=== PATIENT | female | born 1975 ===

== ENCOUNTER 2017-02-09 15:28 | Emergency (ER) | payer MEDICAID ==
[2017-02-09 15:28] VITALS: BMI 29.2
[2017-02-09 15:37] VITALS: TEMP 98.4
--- NOTE | 2017-02-09 16:09 | ED PDOC ---
HPI: Female Pain Time Seen by Provider: 02/09/17 15:46 Chief Complaint (Nursing): Female Genitourinary Chief Complaint (Provider): Vaginal Bleeding History Per: Patient History/Exam Limitations: no limitations Onset/Duration Of Symptoms: Days (x1 day ago), Intermittent Episodes Current Symptoms Are (Timing): Still Present Severity: Moderate Quality Of Discomfort: Cramping Associated Symptoms: Nausea. denies: Vomiting, Urinary Symptoms (dysuria) Additional Complaint(s): Jayna Encinas is a 41 year old female, with a past medical history of HTN, who presents to the emergency department with complaints of vaginal bleeding containing clots, that the patient has been experiencing since yesterday. Patient reports intermittent suprapubic, cramping abdominal pain. Patient reports that she is 3 to 4 weeks and having had her last menstrual period on 01/08/17. She stated being nauseated, but denies vomiting and dysuria. Of note, the patient has been 7 times in the past, had 5 viable births , and miscarried once in which she had a dilation and curettage procedure done. PMD: Eric Cardozo Abnormal Vaginal Bleeding: Yes : 7 Para: 5 Miscarriage: 1 Past Medical History Reviewed: Historical Data, Nursing Documentation, Vital Signs Vital Signs: Last Vital Signs Temp 98.4 F 02/09/17 15:33 Pulse 97 H 02/09/17 15:33 Resp 20 02/09/17 15:33 BP 152/104 H 02/09/17 15:33 Pulse Ox 96 02/09/17 15:33 - Medical History PMH: Asthma, Depression, HTN Denies: Diabetes, Hepatitis, HIV, Chronic Kidney Disease, Seizures, Sexually Transmitted Disease - Surgical History Surgical History: Cholecystectomy Other surgeries: dilation and curettage procedure for miscarriage - Family History Family History: States: CAD (father: CABG), Hypertension (father) - Immunization History Hx Tetanus Toxoid Vaccination: No Hx Influenza Vaccination: Yes Hx Pneumococcal Vaccination: No - Home Medications Home Medications: Ambulatory Orders Medication Instructions Recorded Albuterol HFA [Ventolin HFA 90 2 puff IH [id number] 01/04/16 mcg/actuation (8 g)] Mirtazapine [Remeron] 15 mg PO HS PRN #30 tab 01/06/16 Sertraline [Zoloft] 12.5 mg PO DAILY #15 tab 01/06/16 Albuterol HFA [Ventolin HFA 90 2 puff IH [id number] PRN #1 bottle 01/12/17 mcg/actuation (8 g)] amLODIPine [Norvasc] 5 mg PO DAILY #10 tab 01/12/17 - Allergies Allergies/Adverse Reactions: Allergies Allergy/AdvReac Type Severity Reaction Status Date / Time morphine Allergy RASH Verified 02/09/17 15:33 Penicillins Allergy RASH Verified 02/09/17 15:33 Review of Systems ROS Statement: Except As Marked, All Systems Reviewed And Found Negative Gastrointestinal: Positive for: Nausea, Abdominal Pain (suprapubic). Negative for: Vomiting Genitourinary Female: Positive for: Vaginal Bleeding. Negative for: Dysuria Physical Exam - Reviewed Nursing Documentation Reviewed: Yes Vital Signs Reviewed: Yes - Physical Exam Appears: Positive for: Well, No Acute Distress Head Exam: Positive for: ATRAUMATIC, NORMAL INSPECTION, NORMOCEPHALIC Skin: Positive for: Warm, Dry Eye Exam: Positive for: EOMI, PERRL ENT: Negative for: Pharyngeal Erythema, Tonsillar Exudate Neck: Positive for: Painless ROM, Supple Cardiovascular/Chest: Positive for: Regular Rate, Rhythm. Negative for: Murmur Respiratory: Positive for: Normal Breath Sounds. Negative for: Wheezing Gastrointestinal/Abdominal: Positive for: Normal Exam, Soft, Tenderness ((+) suprapubic). Negative for: Mass, Distended, Guarding, Rebound Back: Positive for: Normal Inspection. Negative for: Decreased ROM Extremity: Positive for: Normal ROM. Negative for: Pedal Edema, Deformity Lymphatic: Negative for: Adenopathy Neurologic/Psych: Positive for: Alert. Negative for: Motor/Sensory Deficits - Laboratory Results Result Diagrams: 02/09/17 15:52 02/09/17 16:14 - ECG O2 Sat by Pulse Oximetry: 96 Pulse Ox Interpretation: Normal - CT Scan/US Transvaginal US Other Rad Studies (CT/US): Read By Radiologist, Radiology Report Reviewed Other Rad Interpretation: See MDM Medical Decision Making Medical Decision Makin:46 Initial Impression: vaginal bleeding Differential Diagnoses includes, but is not limited to complete miscarriage, ectopic , UTI. Initial Plan: * Transvaginal US * CBC * CMP * PT/PTT * Blood Type and Screen * Beta-HCG Quantitative * Urine * Urine Dip * IV Insertion ([facility]) * Reevaluation 18:48 - Transvaginal US Results FINDINGS: Uterus/cervix: Endometrial stripe thickness is 12 mm. No visible intrauterine and no obvious fluid collection or mass in the endometrium but the images do not show Doppler evaluation of the uterus and therefore limited evaluation for retained products of conception. Cervical length is 3.3 cm. The uterus is anteverted and measures 9.9 x 5.3 x 5.4 cm. Right ovary: The right ovary measures 2.1 x 2.8 x 1.9 cm with normal Doppler flow. Normal blood flow. Left ovary: The left ovary measures 1.9 x 1.6 x 1.5 cm with normal Doppler flow. Normal blood flow. Free fluid: No free fluid. Bladder: Empty bladder which cannot be evaluated with this probe. IMPRESSION: Endometrial stripe thickness is 12 mm. No visible intrauterine and no obvious fluid collection or mass in the endometrium but the images do not show Doppler evaluation of the uterus and therefore limited evaluation for retained products of conception. 7p betahcg <2.65. Rh +. JARETT Garcia findings and he will follow up with her next week. Bleeding instructions given. JARETT pt findings and plan of care. Possibility of regular menstrual period vs spontaneous miscarriage discussed. Treatment plan similar. Rest, fluids, NSAIDs , CASE [facility]OCATE follow up. Scribe Attestation: Documented by Juan Mcallister, training under Rola Montes, acting as a scribe for Angella Gaviria MD. Provider Scribe Attestation: All medical record entries made by the Scribe were at my direction and personally dictated by me. I have reviewed the chart and agree that the record accurately reflects my personal performance of the history, physical exam, medical decision making, and the department course for this patient. I have also personally directed, reviewed, and agree with the discharge instructions and disposition. Disposition - Clinical Impression Clinical Impression: Vaginal bleeding Counseled Patient/Family Regarding: Studies Performed, Diagnosis, Need For Followup - Disposition Referrals: Eric Cardozo, MATILDE, BARREL RIFLER BUTTON [Family Provider] - Clinton Garcia MD [Staff Provider] - 02/11/17 Disposition: Routine/Home Disposition Time: 19:00 Condition: GOOD Additional Instructions: PLEASE FIND OUT FROM YOUR DOCTOR YOUR LAB RESULT AND LET DR GARCIA KNOW TO DETERMINE IF YOU WERE TAKE ADVIL OR MOTRIN FOR PAIN AND DRINK PLENTY OF HYDRATING FLUIDS TAKE YOUR HYPERTENSION MEDICATION PRESCRIBED. Instructions: Spontaneous Miscarriage (ED), Menstruation (ED)
[2017-02-09 16:28] LABS: BASO % 0.4 % (0.0-2.0); EOS # 0.1 K/uL (0.0-0.7); EOS % 0.6 % (0.0-4.0); HEMATOCRIT 41.8 % (34.0-47.0); LYMPH # 1.6 K/uL (1.0-4.3); LYMPH % 14.6 % (20.0-40.0); MEAN CELL VOLUME 82.4 fl (81.0-99.0); MEAN CORPUSCULAR HEMOGLOBIN 27.2 pg (27.0-31.0); MEAN PLATELET VOLUME 10.4 fl (7.2-11.7); MONO # 0.6 K/uL (0.0-0.8); MONO % 5.8 % (0.0-10.0); NEUT # 8.4 K/uL (1.8-7.0); NEUT % 78.6 % (50.0-75.0); RED CELL DISTRIBUTION WIDTH 14.4 % (11.5-14.5); WHITE BLOOD COUNT 10.7 K/uL (4.8-10.8)
[2017-02-09 16:30] LABS: ALB/GLOB RATIO 1.1 (1.0-2.1); ALKALINE PHOSPHATASE 98 U/L (38-126); ALT/SGPT 25 U/L (9-52); AST/SGOT 21 U/L (14-36); BILIRUBIN,TOTAL 0.6 mg/dl (0.2-1.3); BLOOD UREA NITROGEN 13 mg/dl (7-17); CALCIUM 9.7 mg/dL (8.4-10.2); CARBON DIOXIDE 25 mmol/L (22-30); CHLORIDE 105 mmol/L (98-107); GFR AFRICAN-AMERICAN > 60; GLUCOSE,RANDOM 89 mg/dL (65-105); POTASSIUM 3.8 MMOL/L (3.6-5.0); SODIUM 145 mmol/l (132-148); TOTAL PROTEIN 8.5 G/DL (6.3-8.2)
[2017-02-09 16:47] LABS: PARTIAL THROMBOPLASTIN TIME 28.7 SECONDS (23.3-32.5)
[2017-02-09 19:38] VITALS: BP 132/94; PULSE 82; RESP 22; O2SAT 100
--- NOTE | 2017-02-10 08:28 | US ---
Pelvic ultrasound History: Evaluate for retained products of conception. Comparison: None. Technique: Trans abdominal and transvaginal ultrasonography evaluation. Findings: The uterus appears anteverted and measures 9.9 x 5.3 x 5.4 centimeters. No intrauterine gestational sac identified. The endometrium appears mildly heterogeneous and echogenic and measures 1.2 centimeters. Submitted images do not demonstrate Doppler evaluation of the endometrial stripe and therefore this is a limited evaluation for retained products conception. Endometrium otherwise measures 1.2 centimeters. The cervix appears closed and without gross abnormality. The cervical length is approximately 3.3 centimeters. The right ovary measures 2.1 x 2.8 x 1.9 centimeters. The left ovary measures 1.9 x 1.6 x 1.5 centimeters. Doppler flow seen within both ovaries. No significant free fluid in the cul-de-sac. Impression: Mildly prominent and heterogeneous endometrium, measuring approximately 1.2 centimeter. No Doppler evaluation was performed for the endometrial stripe thereby limiting evaluation for retained products of conception. Repeat evaluation with Doppler images recommended. No ovarian torsion at the time evaluation. Please note that this report is in general agreement with the preliminary report provided by [facility].
== END 2017-02-09 19:40 | disposition home or self-care (01) ==
LOC: H.ER 15:28
DX: N93.9 Abnormal uterine and vaginal bleeding, unspecified (principal); R10.2 Pelvic and perineal pain; I10 Essential (primary) hypertension

== ENCOUNTER 2017-06-21 13:41 | Observation (INO) | payer MEDICAID ==
[2017-06-21 13:41] VITALS: BMI 29.2
[2017-06-21 13:49] VITALS: BP 146/88; PULSE 88; RESP 18; TEMP 98.8; O2SAT 99
[2017-06-21 14:50] LABS: BASO % 0.3 % (0.0-2.0); EOS % 0.5 % (0.0-4.0); HEMOGLOBIN 13.1 g/dL (12.0-16.0); LYMPH # 1.1 K/uL (1.0-4.3); LYMPH % 14.8 % (20.0-40.0); MEAN CORPUSCULAR HEMOGLOBIN 28.9 pg (27.0-31.0); MEAN CORPUSCULAR HGB CONC 33.6 g/dL (33.0-37.0); MEAN PLATELET VOLUME 10.8 fl (7.2-11.7); MONO # 0.4 K/uL (0.0-0.8); MONO % 5.2 % (0.0-10.0); NEUT # 6.1 K/uL (1.8-7.0); NEUT % 79.2 % (50.0-75.0); RBC 4.52 Mil/uL (3.80-5.20); RED CELL DISTRIBUTION WIDTH 14.9 % (11.5-14.5); WHITE BLOOD COUNT 7.7 K/uL (4.8-10.8)
[2017-06-21 15:08] LABS: ALB/GLOB RATIO 1.2 (1.0-2.1); ALBUMIN 3.8 g/dL (3.5-5.0); ALT/SGPT 27 U/L (9-52); AST/SGOT 16 U/L (14-36); BLOOD UREA NITROGEN 8 mg/dl (7-17); CALCIUM 9.3 mg/dL (8.4-10.2); GFR AFRICAN-AMERICAN > 60; GFR NON-AFRICAN AMERICAN > 60
--- NOTE | 2017-06-21 15:09 | ED PDOC ---
HPI: General Adult Time Seen by Provider: 06/21/17 14:08 Chief Complaint (Nursing): Female Genitourinary History Per: Patient Additional Complaint(s): Pt. states this morning she was urinating and after she wiped she noticed some blood on the tissue. She contacted Dr. Garcia who instructed her to come to ED. Of note, pt is currently 15 weeks . Denies dysuria, abdominal pain, pelvic pain, fever, N/V/D. Past Medical History Reviewed: Historical Data, Nursing Documentation, Vital Signs Vital Signs: Last Vital Signs Temp 98.8 F 06/21/17 13:47 Pulse 88 06/21/17 13:47 Resp 18 06/21/17 13:47 BP 146/88 06/21/17 13:47 Pulse Ox 99 06/21/17 15:10 - Medical History PMH: Asthma, Depression, HTN Denies: Diabetes, Hepatitis, HIV, Chronic Kidney Disease, Seizures, Sexually Transmitted Disease - Surgical History Surgical History: Cholecystectomy - Family History Family History: States: CAD (father: CABG), Hypertension (father) - Immunization History Hx Tetanus Toxoid Vaccination: No Hx Influenza Vaccination: Yes Hx Pneumococcal Vaccination: No - Home Medications Home Medications: Ambulatory Orders Medication Instructions Recorded Albuterol HFA [Ventolin HFA 90 2 puff IH [id number] 01/04/16 mcg/actuation (8 g)] Mirtazapine [Remeron] 15 mg PO HS PRN #30 tab 01/06/16 Sertraline [Zoloft] 12.5 mg PO DAILY #15 tab 01/06/16 Albuterol HFA [Ventolin HFA 90 2 puff IH [id number] PRN #1 bottle 01/12/17 mcg/actuation (8 g)] amLODIPine [Norvasc] 5 mg PO DAILY #10 tab 01/12/17 - Allergies Allergies/Adverse Reactions: Allergies Allergy/AdvReac Type Severity Reaction Status Date / Time morphine Allergy RASH Verified 06/21/17 13:47 Penicillins Allergy RASH Verified 06/21/17 13:47 Review of Systems ROS Statement: Except As Marked, All Systems Reviewed And Found Negative Genitourinary Female: Positive for: Vaginal Bleeding Physical Exam - Physical Exam Appears: Positive for: Well, Non-toxic, No Acute Distress Skin: Positive for: Normal Color, Warm. Negative for: Rash Eye Exam: Positive for: EOMI, Normal appearance, PERRL Cardiovascular/Chest: Positive for: Regular Rate, Rhythm Respiratory: Positive for: CNT, Normal Breath Sounds Gastrointestinal/Abdominal: Positive for: Normal Exam, Bowel Sounds, Soft. Negative for: Tenderness Back: Positive for: Normal Inspection. Negative for: L CVA Tenderness, R CVA Tenderness Neurologic/Psych: Positive for: Alert, Oriented - Laboratory Results Result Diagrams: 06/21/17 14:44 06/21/17 15:25 - ECG O2 Sat by Pulse Oximetry: 99 - Progress ED Course And Treament: Labs ordered. US ordered. ED OBSERVATION Discharge: Yes Date of observation admission: 06/21/17 Time of observation admission: 14:38 - Observation admission statement Patient is being placed in observation because:: Vaginal bleeding - Progress Note Progress Note: 06/21/17 17:47 OB US: Single live intrauterine gestation of approximately 13 weeks 1 day gestational age. Variable presentation. heart rate 163 beats per minute. Please note that the head circumference to abdominal circumference ratio is above the normal range. Followup ultrasound with biometry is advised prior to 20 weeks gestation. Case d/w Dr. Garcia who agrees with care and requests that pt. be on bed rest and no sexual intercourse. Pt. is to f/u in his office on Saturday. Pt. informed of plan verbalized understanding and will f/u with Dr. Garcia on Saturday. Disposition - Clinical Impression Clinical Impression: Threatened miscarriage - Patient ED Disposition Is Patient to be Admitted: No - Disposition Disposition: Routine/Home Disposition Time: 17:48 Condition: STABLE
--- NOTE | 2017-06-21 17:26 | US ---
PROCEDURE: Obstetrical ultrasound examination HISTORY: COMPARISON: Not available TECHNIQUE: Transabdominal FINDINGS: There is a single live intrauterine gestation in variable presentation. The heart rate is 163 beats per minute. A grossly normal quantity of amniotic fluid is visualized. An anterior placenta is identified. There is no evidence placenta previa. The cervix is long and closed. biometry demonstrates an average ultrasound age of 13 weeks 1 day. Please note that the head circumference to abdominal circumference ratio is above the normal range. A followup 2nd trimester ultrasound examination is advised, prior to 20 weeks gestation. . There is no uterine mass identified. The right ovary could not be visualized. The left ovary measures 3.0 x 2.1 x 2.6 cm. Normal flow is demonstrated. IMPRESSION: Single live intrauterine gestation of approximately 13 weeks 1 day gestational age. Variable presentation. heart rate 163 beats per minute. Please note that the head circumference to abdominal circumference ratio is above the normal range. Followup ultrasound with biometry is advised prior to 20 weeks gestation.
== END 2017-06-21 18:23 | disposition home or self-care (01) ==
LOC: H.ER 13:41 → H.EROBSV 14:38
PROVIDERS: ADMIT Emergency Medicine; ATTEND Emergency Medicine
DX: O20.0 Threatened abortion (principal)

== ENCOUNTER 2017-12-02 14:28 | Inpatient (IN) | payer MEDICAID, OTHER ==
[2017-12-02 14:59] VITALS: BMI 32.2
[2017-12-02] MEDS ORDERED: Betamethasone Soluspan 30 mg/5mL Inj Susp IM SCH (15:00)
[2017-12-02 15:18] LABS: BASO % 0.3 % (0.0-2.0); EOS % 0.3 % (0.0-4.0); LYMPH # 0.8 K/uL (1.0-4.3); LYMPH % 11.6 % (20.0-40.0); MEAN CORPUSCULAR HEMOGLOBIN 27.3 pg (27.0-31.0); MEAN CORPUSCULAR HGB CONC 32.5 g/dL (33.0-37.0); MEAN PLATELET VOLUME 11.2 fl (7.2-11.7); MONO # 0.4 K/uL (0.0-0.8); NEUT # 6.1 K/uL (1.8-7.0); NEUT % 82.8 % (50.0-75.0); NRBC % 0.9 % (0.0-0.0); RBC 4.39 Mil/uL (3.80-5.20); RED CELL DISTRIBUTION WIDTH 14.6 % (11.5-14.5); WHITE BLOOD COUNT 7.3 K/uL (4.8-10.8)
[2017-12-02 15:38] LABS: INR 0.9 (0.9-1.2); PARTIAL THROMBOPLASTIN TIME 26.2 Seconds (25.6-37.1); PROTHROMBIN TIME 10.2 Seconds (9.8-13.1)
[2017-12-02] MEDS ORDERED: Labetalol 5 mg/ml Inj 20ML IVP STA ×2 (15:38→18:04)
[2017-12-02] MEDS ORDERED: Labetalol 5mg/ml (4ml) ONE ×2 (15:39→16:15)
[2017-12-02 15:46] LABS: ALBUMIN 3.3 g/dL (3.5-5.0); ALT/SGPT 29 U/L (9-52); AST/SGOT 30 U/L (14-36); BILIRUBIN,DIRECT 0.3 mg/ml (0.0-0.4); BLOOD UREA NITROGEN 11 mg/dl (7-17); CALCIUM 9.2 mg/dL (8.4-10.2); GFR AFRICAN-AMERICAN > 60; GFR NON-AFRICAN AMERICAN > 60; URIC ACID 4.3 mg/Dl (2.2-7.5)
[2017-12-02] MEDS: Lactated Ringer's 1,000 ML IV SCH (15:59)
--- NOTE | 2017-12-02 16:59 | OBADHP ---
Datetime: 12/02/2017 16:30 IP Adm Impression Other: pre-eclampsia Multiparity and vol sterilization Admit Comment, IP Provider: 42 yo ega 36.2 presents to the [facility] after measurements of hypertbessie murrell in Dr. Garcia's office. She doens know how elevated her BP was. Shares of slight occipital hea daches. No change in vision. No epigastric pain. Denies nausea or vomiting. positive: movement denies: VB, LOF, CP/SOB/N/V/dysuria pnc: Dr. Garcia obhx x4: full term, uncomplicated gyne: hx of treated chlamydia 25 yrs ago; pap neg medhx: htn, asthma, famhx: htn (3 years controlled without medication) surghx: cholecystectomy soc: denies smoking, alcohol, illicit drugs rx; pnv Allergies: morphine and penicillin (rash) AAOX3 Cardiac: s1s2 no murmurs lungs: clear bilaterally, no wheezing abdo; gravid: non tender; no epigastric tenderness negative for calf tenderness or CVT tenderness Pt states possible herpes zoster in L lumbar treated with acyclovir. 42 yo presents with hypertension IUP 36.2 -hypertensive -labetalol 20 mg IV push over 2 minutes -labs: preeclampsia workup CBC, CMP, uric acid, LDH, PT/PTT, UA, 24 hr urine, hiv, rpr -continue monitoring vitals -clindamycin 900 mg stat -schedule for C/S case dw Dr. Omero Boyd MD PGY1 Had to be given IV labetalol since BP very high Labs done and discussed wi th perinatologist who in view of BP and her hx and need for IV meds now recomends delivery Pt explain ed the situation and since she has been folllowed for EFW >95%, and uninducible cx and desire for BTL request to have C/S done jRisks and complications of C/S vs induction and vaginal were discuss ed still wants C/S Will prepare Pelvic Type - PN: Adequate Extremities - PN: Abnormal Abdomen - PN: Normal Back - PN: Normal Breast - PN: Not Done Lungs - PN: Normal Heart - PN: Normal Thyroid - PN: Not Done Neurologic - PN: Normal HEENT - PN: Normal General - PN: Normal FHR - Baseline A Provider: 150 Membranes, Provider: Intact Comments, ACOG Physical Exam: fu;ndus at 42cm above sp, gravid, NT Ext bilateral pedal and hnd edema DTR slightly brisks Gestation - Est Wks by US: 36w 2d IP Hx Assessment: The History has been Reviewed and is Current Vital Signs Provider: Reviewed Vital Signs Provider Details: hypertensive IP Chief Complaint: Signs/Symptoms Gestational HTN NICHD Variability Prov Fetus A: Moderate 6-25bpm NICHD Accel Fetus A IP Provider: [id number] FHR Category Provider Fetus A: Category I NICHD Decel Fetus A IP Provider: None Dilatation, Provider: closed Effacement, Provider: none Station, Provider: high Genitourinary Exam: Normal DTRs - PN: Abnormal EGA AdmitDate IP: 36.2 IP Adm Impression: , intrauterine IP Admit Plan: Admit to unit; Initiate Section protocol Datetime: 12/02/2017 15:00 IP Chief Complaint Other: hypertension
[2017-12-02] MEDS ORDERED: Bicitra 30 ML UD PO ONE ×3 (18:15→18:17)
[2017-12-02] MEDS ORDERED: Oxytocin 30 UNITS in Sodium Chloride 0.9% 500 ML IV ONE (18:15)
[2017-12-02] MEDS ORDERED: Morphine 1 mg/ml preservative-free Inj(Duramorph) ONE (18:24)
[2017-12-02] MEDS ORDERED: Phenylephrine 10 mg/ml Inj ONE (18:33)
[2017-12-02] MEDS ORDERED: ePHEDrine 50 mg/ml Inj ONE (18:33)
--- NOTE | 2017-12-02 20:22 | OBDS ---
DELIVERY PERSONNEL Delivery Doctor: Tonny Garcia MD [employer] Operator: Ashley Arroyo RN Anesthesiologist: Tonny Govea MD MATERNAL INFORMATION Delivery Anesthesia: Spinal Medications in Delivery: Oxytocin Estimated Blood Loss (ml): 850 Other Maternal Complications: severe hypertension/ Pre-eclampsia Provider Comments: see dictated surgeons note LABOR SUMMARY EDC: 12/28/2017 00:00 No. Babies in Womb: 1 Attempted: No Labor Anesthesia: None LABOR INFORMATION Reason for Induction: Gest. HTN/PreEclampsia/Eclampsia Oxytocin: N/A Group B Beta Strep: Negative Steroids Given: Partial Course Reason Steroids Not Administered: Not Applicable MEMBRANES Membranes Rupture Method: Artificial Rupture of Membranes: 12/02/2017 19:10 Length of Rupture (hrs): 0.03 Amniotic Fluid Color: Clear Amniotic Fluid Amount: Small STAGES OF LABOR Stage 3 hrs: 0 Stage 3 min: 1 VAGINAL DELIVERY Episiotomy: None Laceration Extension: N/A Laceration Type: None Laceration Repair: Not Applicable CSECTION DELIVERY Primary Indication: severe hypertension far from delivery/pre-eclampsia far from delivery Other Primary Indication: desired sterilization Secondary Indication: maternal request CSection Urgency: Non Elective CSection Incidence: Primary Elective: N/A CSection Incision: Lower Uterine Transverse Sterilization Procedure: Goldie Uterine Closure: Double-layer closure BABY A INFORMATION Infant Delivery Date/Time: 12/02/2017 19:12 Method of Delivery: Born in Route : No : N/A Forceps: N/A Vacuum Extraction: N/A Shoulder Dystocia : No ASSISTED DELIVERY BABY A Vacuum Number of Pulls: 1 Vacuum Number of PopOffs: 0 SHOULDER DYSTOCIA BABY A Delivery Date/Time: 12/02/2017 19:12 PRESENTATION/POSITION BABY A Presentation: Cephalic Cephalic Presentation: Vertex PLACENTA INFORMATION BABY A Placenta Delivery Time : 12/02/2017 19:13 Placenta Method of Delivery: Manual Removal Placenta Status: Delivered SCORES BABY A Heart Rate 1 min: >100 bpm Resp Effort 1 min: Good Cry Reflex Irritability 1 min: Cough or Sneeze or Pulls Away Muscle Tone 1 min: Active Motion Color 1 min: Body [place], Extremities Blue SCORE 1 MIN: 9 Heart Rate 5 min: >100 bpm Resp Effort 5 min: Good Cry Reflex Irritability 5 min: Cough or Sneeze or Pulls Away Muscle Tone 5 min: Active Motion Color 5 min: Body [place], Extremities Blue SCORE 5 MIN: 9 INFORMATION BABY A Gestational Age at Delivery: 37.0 Gestational Status: Term Outcome : Liveborn Infant Condition : Stable Infant Sex: Male IDENTIFICATION/MEDS BABY A ID Band Number: [id number] ID Band Location: Left Leg; Left Arm WEIGHT/LENGTH BABY A Birthweight (gms): 3320 Weight (lb): 7 Weight (oz): 5 CORD INFORMATION BABY A No. Cord Vessels: 3 Nuchal Cord : N/A Cord Blood Taken: Yes Infant Suction: Mouth
[2017-12-02] MEDS ORDERED: Oxycodone/Acetaminophen 5/325 mg Tab PO PRN (20:23)
[2017-12-02] MEDS ORDERED: Magnesium Sul 40GM/1L SW 40 GM/1,000 ML ML IV ONE (20:34)
[2017-12-02] MEDS ORDERED: DiphenhydrAMINE 50 mg/ml Inj IVP PRN (21:14)
[2017-12-02] MEDS ORDERED: Magnesium Sulfate 2 gm/50 ml 2 GM/50 ML BAG IVPB ONE (21:44)
[2017-12-03] MEDS: Lactated Ringer's 1,000 ML IV SCH (00:32)
[2017-12-03] MEDS ORDERED: Oxycodone/Acetaminophen 5/325 mg Tab PO PRN (06:27)
[2017-12-03 06:38] LABS: BASO % 0.1 % (0.0-2.0); HEMOGLOBIN 9.8 g/dL (12.0-16.0); LYMPH % 6.2 % (20.0-40.0); MEAN CELL VOLUME 83.7 fl (81.0-99.0); MEAN CORPUSCULAR HEMOGLOBIN 26.7 pg (27.0-31.0); MEAN CORPUSCULAR HGB CONC 31.9 g/dL (33.0-37.0); MEAN PLATELET VOLUME 11.3 fl (7.2-11.7); MONO # 0.9 K/uL (0.0-0.8); MONO % 5.6 % (0.0-10.0); NEUT # 13.6 K/uL (1.8-7.0); NEUT % 88.1 % (50.0-75.0); RBC 3.68 Mil/uL (3.80-5.20); RED CELL DISTRIBUTION WIDTH 15.1 % (11.5-14.5); WHITE BLOOD COUNT 15.5 K/uL (4.8-10.8)
[2017-12-03 06:47] LABS: PLATELET COUNT 150 K/uL (130-400)
[2017-12-03 06:55] LABS: ALBUMIN 2.8 g/dL (3.5-5.0); ALT/SGPT 31 U/L (9-52); AST/SGOT 27 U/L (14-36); BLOOD UREA NITROGEN 9 mg/dl (7-17); CALCIUM 7.9 mg/dL (8.4-10.2); GFR AFRICAN-AMERICAN > 60; GFR NON-AFRICAN AMERICAN > 60; MAGNESIUM 4.2 MG/DL (1.6-2.3)
[2017-12-03 07:09] LABS: ALB/GLOB RATIO 0.9 (1.0-2.1)
--- NOTE | 2017-12-03 08:03 | OBPPN ---
Datetime: 12/03/2017 07:55 PP Pain Prov: Within normal limits PP Pain Prov comment: denies SOB, chest or leg pains PP Nausea Prov: Denies PP Flatus Prov: No PP BM Prov: No PP Breasts Prov: Normal PP Lungs Prov: Normal PP Abdomen/Uterus Prov: Abnormal PP Lochia Prov: Normal PP Vulva/Perineum Prov: Normal PP CVA Tenderness Prov: Normal PP Extremities Prov: Abnormal PP C/S Incision Prov: Normal PP Progress Prov: Normal PP Comments Phys Exam Prov: breast not engorged, NT; Abd soft not distended, fundus firm below the u mb. Dressing intact, Nash in place draining clear fluid good output Ext Venodyne in place, no kirk f tenderness still with pedal edema. PP Plan Prov: Continue present management PP Impression Other Prov: pre-eclampsia severe hypertension on MgSO4 PP Plan Other Prov: start on po iron PP Progress Note Prov: plan as above Start on po fluids
[2017-12-03 11:00] LABS: ANISOCYTOSIS SLIGHT; BANDS 1 % (0-2); GIANT PLATELETS PRESENT; HYPOCHROMIC SLIGHT; LARGE PLATELETS PRESENT; LYMPHOCYTE 6 % (20-50); MONOCYTE 6 % (0-10); MYELOCYTE 1 % (0-0); NEUTROPHIL 86 % (42-75); PLATELET ESTIMATE NORMAL (NORMAL); TOTAL CELLS COUNTED 100
[2017-12-03] MEDS ORDERED: Clindamycin 600mg/50ml NS 600 MG/50 ML BAG IVPB SCH (11:45)
[2017-12-03] MEDS: Clindamycin 600mg/50ml NS 600 MG/50 ML BAG IVPB SCH ×2 (12:03→21:21)
[2017-12-03] MEDS ORDERED: Magnesium Sul 40GM/1L SW 40 GM/1,000 ML ML IV ONE (19:36)
[2017-12-03] MEDS ORDERED: Lactated Ringer's 1,000 ML IV SCH (19:45)
[2017-12-04] MEDS ORDERED: Pneumococcal 23-Valent Vaccine IM ONE (08:51)
--- NOTE | 2017-12-04 08:57 | OBPPN ---
Datetime: 12/04/2017 08:32 PP Pain Prov: Within normal limits PP Pain Prov comment: No SOB, chest or leg pains PP Nausea Prov: Denies PP BM Prov: No PP Breasts Prov: Normal PP Heart Prov: Normal PP Lungs Prov: Normal PP Abdomen/Uterus Prov: Abnormal PP Lochia Prov: Normal PP Vulva/Perineum Prov: Normal PP CVA Tenderness Prov: Normal PP Extremities Prov: Normal PP C/S Incision Prov: Normal PP Progress Prov: Normal PP Comments Phys Exam Prov: breast not engorged NT, Abd soft ND fundus firm below the umb Dressing i ntact removed incision clean and dry no supp or active bleeding Perineum intact ext no calf tendern ess mild bilateral edema PP Plan Prov: Continue present management PP Impression Other Prov: pre-eclampsia/ Hypertension PP Progress Note Prov: BP still high [employer] Professor consult ordered and will see her this am, Continu e po care and PP care. Vital Signs Provider PP: Reviewed
--- NOTE | 2017-12-04 13:12 | CP.PCM.CON ---
History of Present Illness - History of Present Illness History of Present Illness: THE PATIENT IS A 42 YEAR OLD FEMALE ADMITTED EARLIER IN THE WEEK FOR INDUCED HYPERTENSION AND RECEIVE LABETOTOL AND IV MAGNESIUM SULPHATE AND HAD A C -SECTION. THE MAGNESIUM SULPHATE WAS STOPPED LAST NIGHT BUT THE BLOOD PRESSURE IS STILL HIGH SO CARDIOLOGY WAS ASKED TO SEE HER. SHE STATES THAT SHE WAS TOLD THAT SHE HAD BORDERLINE HYPERTENSION TO MILD HYPERTENSION SINCE 2010 AND WAS TREATED FOR IT BACK THEN BUT HAS MOSTLY NOT TAKEN MEDICATIONS FOR IT. SHE HAD 5 PREVIOUS CHILDREN AND STATES HER BLOOD PRESSURE WAS ALWAYS GOOD DURING THOSE PREGNANCIES. SHE STATES THAT SHE HAS MILD ASTHMA AND TAKES PRN INHALERS FOR IT. SHE DENIES ANY OTHER SIGNIFICANT PMH INCLUDING HEART DISEASE. HER FATHER HAD HYPERTENSION. Past Patient History - Past Social History Smoking Status: Never Smoked - CARDIAC Hx Hypertension: Yes - PULMONARY Hx Asthma: Yes - NEUROLOGICAL Hx Seizures: No - HEENT Hx HEENT Problems: No - RENAL Hx Chronic Kidney Disease: No - ENDOCRINE/METABOLIC Hx Endocrine Disorders: No - HEMATOLOGICAL/ONCOLOGICAL Hx Human Immunodeficiency Virus (HIV): No - INTEGUMENTARY Hx Dermatological Problems: No - MUSCULOSKELETAL/RHEUMATOLOGICAL Hx Musculoskeletal Disorders: No - GASTROINTESTINAL Hx Gastrointestinal Disorders: No - GENITOURINARY/GYNECOLOGICAL Hx Sexually Transmitted Disorders: No - PSYCHIATRIC Hx Depression: Yes - SURGICAL HISTORY Hx Cholecystectomy: Yes - ANESTHESIA Hx Anesthesia: Yes Hx Anesthesia Reactions: No Meds Allergies/Adverse Reactions: Allergies Allergy/AdvReac Type Severity Reaction Status Date / Time morphine Allergy RASH Verified 06/21/17 13:47 Penicillins Allergy RASH Verified 06/21/17 13:47 - Medications Medications: Current Medications Docusate Sodium (Colace) 100 mg PO BID [facility] Last Admin: 12/04/17 09:04 Dose: 100 mg Ferrous Sulfate (Feosol) 325 mg PO BID [facility] Last Admin: 12/04/17 09:04 Dose: 325 mg Ibuprofen (Motrin Tab) 600 mg PO Q4H PRN PRN Reason: Pain, Mild (1-3) Last Admin: 12/04/17 10:44 Dose: 600 mg Ketorolac Tromethamine (Toradol) 30 mg IVP Q6 PRN PRN Reason: For PCEA Breakthrough Pain Oxycodone/Acetaminophen (Percocet 5/325 Mg Tab) 1 tab PO Q4 PRN PRN Reason: Pain, moderate (4-7) Stop: 12/05/17 20:24 Physical Exam - Respiratory Exam Respiratory Exam: Clear to Auscultation Bilateral - Cardiovascular Exam Cardiovascular Exam: REGULAR RHYTHM, +S1, +S2 - Extremities Exam Additional comments: NO EDEMA AT THE PRESENT TIME - Additional Findings Additional findings: BLOOD PRESSURE RECORDINGS WERE REVIEWED AND BP THIS AM WAS 160/100 Results - Vital Signs Recent Vital Signs: Last Vital Signs Temp Pulse 106 H 12/04/17 10:40 Resp BP 158/97 H 12/04/17 10:40 Pulse Ox - Labs Result Diagrams: 12/03/17 06:00 12/03/17 06:00 Labs: Laboratory Results - last 24 hr 12/03/17 06:00 RPR Nonreactive Assessment & Plan - Assessment and Plan (Free Text) Assessment: HISTORY OF MILD HYPERTENSION IN THE PAST AND PRESENTLY WITH INDUCED HYPERTENSION BLOOD PRESSURE IS STILL HIGH TODAY OFF MAGNESIUM Plan: WILL BEGIN AMLODIPINE-10 MGS WAS ORDERED FOR TODAY AND I WILL FOLLOW HER BLOOD PRESSURE DAILY AND ORDER AMLODIPINE NEEDED 12 LEAD EKG
--- NOTE | 2017-12-05 07:49 | OBPPN ---
Datetime: 12/05/2017 07:41 PP Pain Prov: Within normal limits PP Pain Prov comment: No SOB, chest or leg pains PP Nausea Prov: Denies PP Flatus Prov: Yes PP BM Prov: No PP Nausea Prov comment: voiding well PP Breasts Prov: Normal PP Lungs Prov: Normal PP Abdomen/Uterus Prov: Abnormal PP Lochia Prov: Normal PP Vulva/Perineum Prov: Normal PP CVA Tenderness Prov: Normal PP Extremities Prov: Abnormal PP C/S Incision Prov: Normal PP Progress Prov: Normal PP Comments Phys Exam Prov: breast not engorged NT, abd soft ND, fundus firm below the umb, incision clean and dry no suppt or discharge no active bleeding Ext no calf tenderness but mild carson edema sti ll present. PP Plan Prov: Continue present management PP Impression Other Prov: severe pre-eclampsia/ possible chronic HTn PP Progress Note Prov: Dulcolax suppt this am, continue monitoring BP Dr Ingram consult monique narvaez. Continue PO and PP care. IP PP Procedures: None Vital Signs Provider PP: Reviewed
--- NOTE | 2017-12-05 09:46 | CP.PCM.PN ---
Subjective - Date & Time of Evaluation Date of Evaluation: 12/05/17 Time of Evaluation: 09:30 - Subjective Subjective: NO CHEST PAIN OR SOB FEELS BETTER Objective - Vital Signs/Intake and Output Vital Signs (last 24 hours): Temp Pulse Resp BP Pulse Ox 106 H 158/97 H 12/04/17 10:40 12/04/17 10:40 - Medications Medications: Current Medications Bisacodyl (Dulcolax) 10 mg [place] DAILY PRN PRN Reason: Constipation Docusate Sodium (Colace) 100 mg PO BID [facility] Last Admin: 12/05/17 09:04 Dose: 100 mg Ferrous Sulfate (Feosol) 325 mg PO BID [facility] Last Admin: 12/05/17 09:04 Dose: 325 mg Ibuprofen (Motrin Tab) 600 mg PO Q4H PRN PRN Reason: Pain, Mild (1-3) Last Admin: 12/05/17 07:31 Dose: 600 mg Ketorolac Tromethamine (Toradol) 30 mg IVP Q6 PRN PRN Reason: For PCEA Breakthrough Pain Oxycodone/Acetaminophen (Percocet 5/325 Mg Tab) 1 tab PO Q4 PRN PRN Reason: Pain, moderate (4-7) Stop: 12/05/17 20:24 - Labs Labs: 12/03/17 06:00 12/03/17 06:00 PT 10.2 Seconds (9.8-13.1) 12/02/17 15:00 INR 0.9 (0.9-1.2) 12/02/17 15:00 APTT 26.2 Seconds (25.6-37.1) 12/02/17 15:00 - Respiratory Exam Respiratory Exam: Clear to Ausculation Bilateral - Cardiovascular Exam Cardiovascular Exam: REGULAR RHYTHM, +S1, +S2 - Extremities Exam Extremities Exam: Normal Inspection - Additional Findings Additional findings: EKG YESTERDAY SSINUS, R 112, OTHERWISE NORMAL EKG ALL BLOOD PRESSURE MEASUREMENTS FROM YESTERAY AND TODAY REVIEW AND MOST WERE MILDLY ELEVATED Assessment and Plan - Assessment and Plan (Free Text) Assessment: HYPERTENSION PROBABLY CHRONIC HYPERTENSION WITH RECENT PIH Plan: PATIENT RECEIVED AMLODIPINE 10 MGS DAILY AND WILL BEGIN 5 MGS DAILY OF TODAY
[2017-12-05] MEDS: Oxycodone/Acetaminophen 5/325 mg Tab PO PRN ×2 (16:30→16:33)
[2017-12-06] MEDS: Oxycodone/Acetaminophen 5/325 mg Tab PO PRN ×4 (02:04→21:50)
--- NOTE | 2017-12-06 10:14 | CP.PCM.PN ---
Subjective - Date & Time of Evaluation Date of Evaluation: 12/06/17 Time of Evaluation: 09:20 - Subjective Subjective: MEDICAL LABORATORY ASSISTANT CHEST PAIN OR SOB MILD BREAST TENDERNESS AND HEADACHE Objective - Vital Signs/Intake and Output Vital Signs (last 24 hours): Temp Pulse Resp BP Pulse Ox 98 H 150/102 H 12/06/17 09:34 12/06/17 09:34 - Medications Medications: Current Medications Amlodipine Besylate (Norvasc) 5 mg PO DAILY [facility] Last Admin: 12/06/17 09:34 Dose: 5 mg Bisacodyl (Dulcolax) 10 mg [place] DAILY PRN PRN Reason: Constipation Docusate Sodium (Colace) 100 mg PO BID [facility] Last Admin: 12/06/17 09:34 Dose: 100 mg Ferrous Sulfate (Feosol) 325 mg PO BID [facility] Last Admin: 12/06/17 09:34 Dose: 325 mg Ibuprofen (Motrin Tab) 600 mg PO Q4H PRN PRN Reason: Pain, Mild (1-3) Last Admin: 12/05/17 21:02 Dose: 600 mg Ketorolac Tromethamine (Toradol) 30 mg IVP Q6 PRN PRN Reason: For PCEA Breakthrough Pain Oxycodone/Acetaminophen (Percocet 5/325 Mg Tab) 1 tab PO Q4 PRN PRN Reason: pain level 4-7 Stop: 12/08/17 21:29 Last Admin: 12/06/17 08:03 Dose: 1 tab - Labs Labs: 12/03/17 06:00 12/03/17 06:00 PT 10.2 Seconds (9.8-13.1) 12/02/17 15:00 INR 0.9 (0.9-1.2) 12/02/17 15:00 APTT 26.2 Seconds (25.6-37.1) 12/02/17 15:00 - Respiratory Exam Respiratory Exam: Clear to Ausculation Bilateral - Cardiovascular Exam Cardiovascular Exam: REGULAR RHYTHM, +S1, +S2 - Extremities Exam Extremities Exam: Normal Inspection - Additional Findings Additional findings: BLOOD PRESSURE READINGS FOR THE LAST 24 HOURS REVIEWED WITH A RANGE FROM NORMAL TO ELEVATED BP NOW 150/90 BUT PATIENT HAS NOT RECEIVED TODAY'S AMLODIPINE YET Assessment and Plan - Assessment and Plan (Free Text) Assessment: HYPERTENSION Plan: CONTINUE AMLODIPINE 5 MGS PO DAILY FOR PROBABLE DISCHARGE TOMORROW
--- NOTE | 2017-12-06 11:26 | OBPPN ---
Datetime: 12/06/2017 11:19 PP Pain Prov: Within normal limits PP Pain Prov comment: no SOB chest or leg pains PP Nausea Prov: Denies PP Flatus Prov: Yes PP BM Prov: Yes PP Nausea Prov comment: headache PP Breasts Prov: Normal PP Lungs Prov: Normal PP Abdomen/Uterus Prov: Abnormal PP Lochia Prov: Normal PP Vulva/Perineum Prov: Normal PP CVA Tenderness Prov: Normal PP Extremities Prov: Abnormal PP C/S Incision Prov: Normal PP Progress Prov: Normal PP Comments Phys Exam Prov: breast not engorged NT Abd soft not distended fundus firm NT incision cl jorje and dry no active bleeding Ext no calf tenderness but still carson mild edema PP Plan Prov: Continue present management PP Impression Other Prov: Still with elevated BP PP Progress Note Prov: product manager financial services consult seen and appreciated she was given Norvasc this am since BP still high Continue po care and pp care IP PP Procedures: None Vital Signs Provider PP: Reviewed
--- NOTE | 2017-12-06 18:37 | CARD ---
APPROVED REPORT EKG Measurement Heart [id number] MD [id number] <Conclusion> Sinus tachycardia Otherwise normal ECG
[2017-12-07] MEDS: Oxycodone/Acetaminophen 5/325 mg Tab PO PRN (09:03)
--- NOTE | 2017-12-07 10:10 | OP ---
PROCEDURE DATE: 12/02/2017 PREOPERATIVE DIAGNOSES: 1. at 36 weeks's gestation. 2. Severe hypertension prior from delivery. 3. Preeclampsia prior from delivery. 4. Multiparity and voluntary sterilization. 5. Maternal request. POSTOPERATIVE DIAGNOSES: 1. at 36 weeks's gestation. 2. Severe hypertension prior from delivery. 3. Preeclampsia prior from delivery. 4. Multiparity and voluntary sterilization. 5. Maternal request. PROCEDURE PERFORMED: 1. Primary low-transverse segment section. 2. Bilateral tubal sterilization using a modified [place] procedure. SURGEON: Clinton Garcia MD. BRAILLE CODER: Bob Corea MD, who was there for the entire duration of the case. Clip Coater was needed in this major abdominal case in order to deliver of the baby, positioning the patient, opening of the abdomen and closure of the abdomen and uterus. TYPE OF ANESTHESIA: Spinal. ANESTHESIA ADMINISTERED BY: Nate Govea MD. ESTIMATED BLOOD LOSS: 850 mL. DRAINS USED: None. REPLACEMENTS USED: None. FINDINGS: 1. Delivered a living baby boy, baby appears adequate for gestational age, baby cried spontaneously. Pediatrist in attendance. score of 9 and 9. 2. Amniotic fluid clear. 3. Placenta complete and intact. 4. Both tubes and ovaries appeared grossly within normal limits to inspection bilaterally. 5. Bilateral tubal sterilization performed using a modified [place] procedure. DESCRIPTION OF PROCEDURE: The patient was taken to the operating room and placed on the operating table in a supine position. Following induction of spinal anesthesia, the patient was then replaced in a supine position. Nash catheter had been inserted into the bladder and was draining clear fluid. At this time, Venodyne boots were applied to both legs and the abdomen was draped and prepped in the usual sterile manner. After testing anesthesia and found to be well secured, a Pfannenstiel incision was then made using sharp dissection 2 fingerbreadths above the symphysis pubis. The incision was then extended down to the subcutaneous tissue also using sharp dissection. At this time, hemostasis was obtained by means of electrocoagulation. Fascia was then identified, was then slit in the midline and incision was then extended laterally on each direction. At this time, we then proceeded to identify the rectus muscle, was then at the midline exposing the peritoneum. Peritoneal layer was then picked up using 2 clamps, retracted superiorly and then entered using sharp dissection. Incision on the peritoneum was then extended superiorly and inferiorly under direct visualization. The bladder was then identified, was then retracted inferiorly using the Ledbetter retractor. The low transverse segment of the uterus was then identified and the visceroperitoneum covering this area was then entered using sharp dissection. Using blunt dissection, a bladder flap was then created and retracted inferiorly using the same Ledbetter retractor. At this time, an incision was then made in the low transverse segment of the uterus. Upon entering the uterine cavity, clear fluid noted to be present. Incision was then extended laterally on each direction using bandage scissors. Using amnioscopy procedure, living baby girl was then delivered. The baby was immediately aspirated using a bulb suction. The baby appeared term, cried spontaneously. The umbilicus was then doubly clamped, cut and the baby handed to the pediatric personnel who was standing by. Samples of cord blood were then obtained and the placenta was then delivered complete and intact. The uterus was then exteriorized to provide better visualization and the uterine cavity was then thoroughly cleaned using moist lap pads. At this time, we then proceeded to a massage of the uterus and contracted well. The uterine incision was then held using multiple T clamps and approximated using 0 Vicryl suture in a continuous interlocking manner. A second layer was also applied also using 0 Vicryl suture in a continuous manner. Hemostasis checked and found to be well secured. The bladder flap was then approximated using a 2-0 Vicryl in a continuous manner. At this time, the patient had requested tubal sterilization and again voiced her desire. The right fallopian tube was then followed to its fimbriated end and the ampullary region was grasped using a Rubens clamp and retracted superiorly. A 2-0 chromic suture was then passed through the mesosalpinx and this section of the tube was then ligated. A 2-0 chromic free tie was then placed underneath the ligature and the ligated section of the tube was then resected and sent to pathology for proper pathological evaluation. The same procedure was then done on the contralateral side without any complications. Following this, all operative areas checked, hemostatically secured. We then proceeded to evacuate free amniotic fluid and blood from the pelvic cavity. The pelvic cavity was then thoroughly irrigated using saline solution and approximated after making sure that all operative area well secured and the peritoneum was then closed using 0 Vicryl suture in a continuous manner. Rectus muscle was then approximated in the midline using 0 Vicryl suture also in a continuous manner. At this time, the fascia was then approximated using 1 Vicryl suture in a continuous manner. Fascia was then checked and found to be free of defects. Subcutaneous tissue was then irrigated using saline solution and approximated using several interrupted 2-0 plain sutures. The skin was then approximated using a 3-0 Prolene in a subcuticular fashion. The patient tolerated the procedure well. There were no complications. She was transferred to the recovery room in satisfactory condition. Sponge, instrument and needle counts had been correct x3. Clinton Garcia MD
--- NOTE | 2017-12-07 10:55 | CP.PCM.PN ---
Subjective - Date & Time of Evaluation Date of Evaluation: 12/07/17 Time of Evaluation: 10:30 - Subjective Subjective: FEELS GOOD THIS MORNING NO COMPLAINTS OF HEADACHE OR CHEST PAIN WANTS TO GO HOME Objective - Vital Signs/Intake and Output Vital Signs (last 24 hours): Temp Pulse Resp BP Pulse Ox 98 H 150/102 H 12/06/17 09:34 12/06/17 09:34 - Medications Medications: Current Medications Amlodipine Besylate (Norvasc) 5 mg PO DAILY [facility] Last Admin: 12/06/17 09:34 Dose: 5 mg Bisacodyl (Dulcolax) 10 mg [place] DAILY PRN PRN Reason: Constipation Docusate Sodium (Colace) 100 mg PO BID [facility] Last Admin: 12/07/17 08:57 Dose: 100 mg Ferrous Sulfate (Feosol) 325 mg PO BID [facility] Last Admin: 12/07/17 08:59 Dose: 325 mg Ibuprofen (Motrin Tab) 600 mg PO Q4H PRN PRN Reason: Pain, Mild (1-3) Last Admin: 12/05/17 21:02 Dose: 600 mg Ketorolac Tromethamine (Toradol) 30 mg IVP Q6 PRN PRN Reason: For PCEA Breakthrough Pain Oxycodone/Acetaminophen (Percocet 5/325 Mg Tab) 1 tab PO Q4 PRN PRN Reason: pain level 4-7 Stop: 12/08/17 21:29 Last Admin: 12/07/17 09:03 Dose: 1 tab - Labs Labs: 12/03/17 06:00 12/03/17 06:00 PT 10.2 Seconds (9.8-13.1) 12/02/17 15:00 INR 0.9 (0.9-1.2) 12/02/17 15:00 APTT 26.2 Seconds (25.6-37.1) 12/02/17 15:00 - Respiratory Exam Respiratory Exam: Clear to Ausculation Bilateral - Cardiovascular Exam Cardiovascular Exam: REGULAR RHYTHM, +S1, +S2 - Extremities Exam Extremities Exam: Normal Inspection - Additional Findings Additional findings: BP 140/80 THIS AM Assessment and Plan - Assessment and Plan (Free Text) Assessment: INDUCED HYPERTENSION WITH POSSIBLE MILD CHRONIC HYPERTENSION BY HISTORY STABLE Plan: OK TO DISCHARGE PATIENT FROM [facility] CONTINUE AMLODIPINE 5 MGS PO DAILY OFFICE VISIT WITH ME IN ONE WEEK FOR BLOOD PRESSURE FOLLOW UP-PATIENT TO CALL FOR APPOINTMENT
[2017-12-07] MEDS ORDERED: Vitamin A/D oint 60G TP ONE (11:13)
--- NOTE | 2017-12-07 14:09 | OBPPN ---
Datetime: 12/07/2017 14:05 PP Pain Prov: Within normal limits PP Nausea Prov: Denies PP Flatus Prov: Yes PP BM Prov: Yes PP Breasts Prov: Normal PP Heart Prov: Normal PP Lungs Prov: Normal PP Abdomen/Uterus Prov: Normal PP Lochia Prov: Normal PP Vulva/Perineum Prov: Normal PP CVA Tenderness Prov: Normal PP Extremities Prov: Normal PP C/S Incision Prov: Normal PP Progress Prov: Normal PP Impression Prov: Normal progression PP Plan Prov: Continue present management PP Progress Note Prov: stable pod5,incision healing well continue present care IP PP Procedures: None Vital Signs Provider PP: Reviewed; Within Normal Limits
--- NOTE | 2017-12-07 14:14 | OBDCSUM ---
Datetime: 12/07/2017 14:09 Discharged to, Provider: Home Follow up at, Provider: Dr.Aguilar Domínguez Instr Activity: Bedrest; May be up to bathroom; May be up for meals; May Shower Disch Instr Diet: Regular Discharge Instructions, Provider: Specific instructions as noted Discharge Diagnosis, Provider: Term Delivered Discharge Time: 12/07/2017 14:09 Follow up in weeks, Provider: 1week in office Disch Activity Restrictions: No exercising; No lifting; No driving; Minimize walking; Minimize stair -climbing; No sexual activity; Nothing in vagina - Sublette, tampons, douche Discharge Comment, Provider: pr home today rto 1week call office if any problems Contraception after Delivery: Undecided Datetime: 12/07/2017 14:07 Discharged to, Provider: Home Follow up at, Provider: Dr. Jose Domínguez Instr Activity: May Shower Disch Instr Diet: Regular Discharge Time: 12/07/2017 13:00 Follow up in weeks, Provider: 1 week Disch Referrals: None Disch Activity Restrictions: No exercising; No lifting; No sexual activity; Nothing in vagina - Inte rcourse, tampons, douche
[2017-12-07 14:25] VITALS: BP 142/82; PULSE 92
[2017-12-07 18:50] VITALS: RESP 20; TEMP 98.7; O2SAT 97
== END 2017-12-07 14:45 | disposition home or self-care (01) | DRG 651 ==
LOC: H.EROB2 14:28 → H.L&D 16:39 → H.OB/GYN 12-04 08:00
PROVIDERS: ADMIT Specialist; ATTEND Specialist
PROC: 10D00Z1 Extraction of Products of Conception, Low, Open Approach (ICD-10-PCS; principal; 2017-12-02)
PROC: 0UB70ZZ Excision of Bilateral Fallopian Tubes, Open Approach (ICD-10-PCS; 2017-12-02)
PROC: 4A1HXCZ Monitoring of Products of Conception, Cardiac Rate, External Approach (ICD-10-PCS; 2017-12-02)
DX: O13.4 Gestational [pregnancy-induced] hypertension without significant proteinuria, complicating childbirth (principal); I10 Essential (primary) hypertension; Z37.0 Single live birth; J45.909 Unspecified asthma, uncomplicated; O14.94 Unspecified pre-eclampsia, complicating childbirth; Z30.2 Encounter for sterilization; O99.52 Diseases of the respiratory system complicating childbirth; Z3A.36 36 weeks gestation of pregnancy; Z90.49 Acquired absence of other specified parts of digestive tract